=== PATIENT | male | born 1995 | race Caucasian/White ===

== ENCOUNTER 2016-10-25 23:25 | Emergency (ER) | payer SELFPAY ==
[2016-10-25 23:26] VITALS: BP 164/75; PULSE 106; RESP 18; TEMP 98.2; O2SAT 98
[2016-10-26] MEDS ORDERED: SODIUM CHLORID 0.9% 500 ML INJ 500 ML IV ONE (00:30)
[2016-10-26] MEDS ORDERED: SODIUM CHLORIDE 0.9% FLUSH 5 ML FLUSH IVF PRN (00:30)
[2016-10-26] MEDS ORDERED: ONDANSETRON HCL 4 MG/2 ML VIAL IV PUSH ONE (00:30)
--- NOTE | 2016-10-26 00:41 | RADRPT ---
EXAM DATE/TIME: 10/26/2016 00:39 [place] COMPARISON: No previous studies available for comparison. INDICATIONS : Chest pain. MEDICAL HISTORY : None. SURGICAL HISTORY : Inguinal hernia repair. ENCOUNTER: Initial ACUITY: 1 day PAIN SCORE: 5/10 LOCATION: Bilateral chest FINDINGS: PA and lateral views of the chest demonstrate a normal-sized cardiac silhouette. There is no effusion , consolidation, or pneumothorax. The bones and soft tissues demonstrate no acute abnormality. CONCLUSION: No acute cardiopulmonary abnormality is identified. Bethel Pastor MD on October 26, 2016 at 0:38 Board Certified Radiologist. This report was verified electronically.
[2016-10-26 00:56] VITALS: BP 130/60; PULSE 87; RESP 18; O2SAT 96
[2016-10-26 01:06] LABS: AUTOMATED NEUTROPHIL # 6.9 TH/MM3 (1.8-7.7); BASOPHIL # 0.1 TH/MM3 (0-0.2); BASOPHIL % 0.6 % (0.0-2.0); EOSINOPHIL % 0.5 % (0.0-4.0); HEMATOCRIT 43.5 % (39.0-51.0); HEMO FLAGS DIFF FINAL; LYMPH % 25.3 % (9.0-44.0); LYMPHOCYTE # 2.6 TH/MM3 (1.0-4.8); MEAN CELL VOLUME 91.9 FL (80.0-100.0); MEAN CORPUSCULAR HEMOGLOBIN 31.7 PG (27.0-34.0); MEAN CORPUSCULAR HGB CONC 34.5 % (32.0-36.0); MONO % 7.9 % (0.0-8.0); NEUT % 65.7 % (16.0-70.0); PLATELET COUNT 280 TH/MM3 (150-450); RED BLOOD COUNT 4.74 MIL/MM3 (4.50-5.90); RED CELL DISTRIBUTION WIDTH 12.1 % (11.6-17.2); WHITE BLOOD COUNT 10.4 TH/MM3 (4.0-11.0)
[2016-10-26 01:14] LABS: APTT (PATIENT) 26.6 SEC (24.3-30.1); PROTHROMBIN TIME - PATIENT 11.4 SEC (9.8-11.6)
[2016-10-26 01:25] LABS: ALT (GPT) 49 U/L (12-78); ANION GAP 8 MEQ/L (5-15); AST (GOT) 38 U/L (15-37); BICARBONATE 29.4 MEQ/L (21.0-32.0); BLOOD UREA NITROGEN 17 MG/DL (7-18); CHLORIDE 104 MEQ/L (98-107); GLOMERULAR FILTRATION RATE 73 ML/MIN (>89); MAGNESIUM 2.2 MG/DL (1.5-2.5); SODIUM (NA) 141 MEQ/L (136-145)
[2016-10-26 01:26] LABS: ALKALINE PHOSPHATASE 68 U/L (45-117); CREATINE KINASE 829 U/L (39-308); TOTAL BILIRUBIN ADULT 0.6 MG/DL (0.2-1.0)
[2016-10-26 01:29] LABS: POTASSIUM 3.8 MEQ/L (3.5-5.1)
[2016-10-26 01:38] LABS: CKMB 1.6 NG/ML (0.5-3.6)
--- NOTE | 2016-10-26 02:09 | PD ---
HPI Chief Complaint: Chest Pain Time Seen by Provider: 23:57 Travel History International Travel<30 days: No Contact w/Intl Traveler<30days: No Traveled to known affect area: No History of Present Illness HPI 21 y/o male presents with left-sided chest pain that goes down his arm that is been intermittent with associated nonbloody emesis. He was playing softball today and the symptoms started while he was driving home. His mother brought him here to the emergency room for evaluation and is concerned given their family history of heart disease. He denies other concurrent complaints. Quality is sharp. Severity is moderate. Pain is worse with movement. He denies other modifying factors. He denies history of heart disease. Duration is couple hours. PFSH Past Medical History ADHD: Yes Diminished Hearing: No Tetanus Vaccination: < 5 Years Influenza Vaccination: No Past Surgical History Other Surgery: Yes (hydrocel and double hernia surgery age 5) Family History Family Myocardial Infarction: Yes (multiple family members with earliest in their 60s) Social History Alcohol Use: Yes (socially ) Tobacco Use: No Substance Use: Yes (marijaunia) Allergies-Medications (Allergen,Severity, Reaction): Coded Allergies: No Known Allergies (Unverified , 10/25/16) Reported Meds & Prescriptions Reported Meds & Active Scripts Active Zofran Odt (Ondansetron Odt) 4 Mg Tab 4 Mg SL Q6HR PRN Review of Systems Except as stated in HPI: all other systems reviewed are Neg Physical Exam Narrative GENERAL: Well-nourished, well-developed patient. SKIN: Warm and dry. HEAD: Normocephalic and atraumatic. EYES: No injection or drainage. ENT: No nasal drainage noted. NECK: Supple, trachea midline. CARDIOVASCULAR: Regular rate and rhythm RESPIRATORY: Breath sounds equal bilaterally. No accessory muscle use. GASTROINTESTINAL: Abdomen soft, non-tender, nondistended. EXTREMITIES: No edema. NEUROLOGICAL: Awake and alert. Motor and sensory grossly within normal limits. Normal speech. Data Data Last Documented VS Vital Signs Date Time Temp Pulse Resp B/P Pulse Ox O2 Delivery O2 Flow Rate FiO2 10/26/16 03:01 75 18 114/54 97 10/26/16 00:56 Room Air 10/25/16 23:26 98.2 Orders Electrocardiogram (10/25/16 23:59) Chest, Pa & Lat (10/25/16 23:59) Ckmb (Isoenzyme) Profile (10/26/16 00:29) Complete Blood Count With Diff (10/26/16 00:29) Comprehensive Metabolic Panel (10/26/16 00:29) Magnesium (Mg) (10/26/16 00:29) Prothrombin Time / Inr (Pt) (10/26/16 00:29) Act Partial Throm Time (Ptt) (10/26/16 00:29) Troponin I (10/26/16 00:29) Lipase (10/26/16 00:29) Ecg Monitoring (10/26/16 00:29) Iv Access Insert/Monitor (10/26/16 00:29) Oximetry (10/26/16 00:29) Sodium Chloride 0.9% Flush (Ns Flush) (10/26/16 00:30) Sodium Chlorid 0.9% 500 Ml Inj (Ns 500 M (10/26/16 00:30) Ondansetron Inj (Zofran Inj) (10/26/16 00:30) Alcohol (Ethanol) (10/26/16 00:29) CKMB (10/26/16 00:40) CKMB% (10/26/16 00:40) Drug Screen, Random Urine (10/26/16 01:49) Labs Laboratory Tests Test 10/26/16 10/26/16 00:40 02:05 White Blood Count 10.4 TH/MM3 Red Blood Count 4.74 MIL/MM3 Hemoglobin 15.0 GM/DL Hematocrit 43.5 % Mean Corpuscular Volume 91.9 FL Mean Corpuscular Hemoglobin 31.7 PG Mean Corpuscular Hemoglobin 34.5 % Concent Red Cell Distribution Width 12.1 % Platelet Count 280 TH/MM3 Mean Platelet Volume 9.0 FL Neutrophils (%) (Auto) 65.7 % Lymphocytes (%) (Auto) 25.3 % Monocytes (%) (Auto) 7.9 % Eosinophils (%) (Auto) 0.5 % Basophils (%) (Auto) 0.6 % Neutrophils # (Auto) 6.9 TH/MM3 Lymphocytes # (Auto) 2.6 TH/MM3 Monocytes # (Auto) 0.8 TH/MM3 Eosinophils # (Auto) 0.0 TH/MM3 Basophils # (Auto) 0.1 TH/MM3 CBC Comment DIFF FINAL Differential Comment Prothrombin Time 11.4 SEC Prothromb Time International 1.0 RATIO Ratio Activated Partial 26.6 SEC Thromboplast Time Sodium Level 141 MEQ/L Potassium Level 3.8 MEQ/L Chloride Level 104 MEQ/L Carbon Dioxide Level 29.4 MEQ/L Anion Gap 8 MEQ/L Blood Urea Nitrogen 17 MG/DL Creatinine 1.25 MG/DL Estimat Glomerular Filtration 73 ML/MIN Rate Random Glucose 92 MG/DL Calcium Level 9.5 MG/DL Magnesium Level 2.2 MG/DL Total Bilirubin 0.6 MG/DL Aspartate Amino Transf 38 U/L (AST/SGOT) Alanine Aminotransferase 49 U/L (ALT/SGPT) Alkaline Phosphatase 68 U/L Total Creatine Kinase 829 U/L Creatine Kinase MB 1.6 NG/ML Creatine Kinase MB % 0.2 % Troponin I LESS THAN 0.02 NG/ML Total Protein 8.1 GM/DL Albumin 4.4 GM/DL Lipase 174 U/L Ethyl Alcohol Level LESS THAN 3 MG/DL Urine Opiates Screen NEG Urine Barbiturates Screen NEG Urine Amphetamines Screen NEG Urine Benzodiazepines Screen NEG Urine Cocaine Screen NEG Urine Cannabinoids Screen POS MDM Medical Decision Making Medical Screen Exam Complete: Yes Emergency Medical Condition: Yes Medical Record Reviewed: Yes (past history confirmed) Interpretation(s) EKG shows NSR, no ST elevation or depression, and no arrhythmias. No significant T-wave inversions. CBC & BMP Diagram 10/26/16 00:40 CK with elevation cxr no acute Differential Diagnosis Musculoskeletal, pancreatitis, pneumothorax, atypical cardiac Narrative Course Will check blood work, EKG, chest x-ray and reevaluate labs with mild ck elevation, patient was playing softball the day. Other workup is negative. Urine drug screen is negative for cocaine. No emesis here and patient feeling better. Offered chest pain center versus delta troponin and patient and family preferring to go home now and will follow-up as an outpatient and return if symptoms return, all questions answered Diagnosis Primary Impression: Chest pain Qualified Code: R07.9 - Chest pain, unspecified type Additional Impressions: Vomiting Qualified Code: R11.2 - Non-intractable vomiting with nausea, unspecified vomiting type Rhabdomyolysis Qualified Code: M62.82 - Non-traumatic rhabdomyolysis Patient Instructions: General Instructions Additional Instructions: keep hydrated, follow with primary thursday, set up a high frequency mill operator, tylenol as needed Med/Other Pt SpecificInfo: Prescription(s) given Scripts Ondansetron Odt (Zofran Odt)4 Mg Tab4 Mg SL Q6HR PRN (Nausea/Vomiting) #10 TAB Prov:Kathrin Boothe MD 10/26/16 Disposition: 01 DISCHARGE HOME Condition: Stable Kathrin Boothe MD Oct 26, 2016 02:08
[2016-10-26 02:10] VITALS: BP 114/72; PULSE 88; RESP 18; O2SAT 98
[2016-10-26 02:33] LABS: BARBITURATES, URINE NEG (NEG); COCAINE, URINE NEG (NEG)
[2016-10-26 02:36] LABS: AMPHETAMINE, URINE NEG (NEG)
[2016-10-26 03:01] VITALS: BP 114/54
[2016-10-26] MEDS ORDERED: ZOFR4TAB3 SL (03:03)
--- NOTE | 2016-10-26 11:54 | EKG ---
Date Performed: 10/25/2016 Time Performed: 23:45:46 PTAGE: 21 years EKG: Sinus rhythm NORMAL ECG NO PREVIOUS TRACING DOCTOR: Tony Camara Interpretating Date/Time 10/26/2016 11:54:10
== END 2016-10-26 03:20 | disposition home or self-care (01) ==
LOC: NEPC 23:25
DX: R07.9 Chest pain, unspecified (principal); R11.10 Vomiting, unspecified; M62.82 Rhabdomyolysis
CPT/HCPCS: 71020; 80053; 80307; 80320; 82550; 82552; 83690; 83735; 84484; 85025; 85610; 85730; 93005; 96374; 99285; J2405; J7040

== ENCOUNTER 2016-12-15 23:29 | Emergency (ER) | payer SELFPAY ==
[~2016-12-15] VITALS: Ht 182.9 cm; Wt 99.0 kg
[~2016-12-15 23:29] MED LIST: ZOFR4TAB3 SL
[2016-12-15 23:39] VITALS: BP 147/91; PULSE 75; RESP 16; TEMP 98.1; O2SAT 97
[2016-12-16 07:39] VITALS: BP 137/88; PULSE 69; RESP 16; O2SAT 99
[2016-12-16] MEDS ORDERED: ALUMINUM/MAGNESIUM/SIMETH 30 ML CUP PO ONE (07:45)
[2016-12-16] MEDS ORDERED: SODIUM CHLORIDE 0.9% FLUSH 10 ML FLUSH IV FLUSH PRN (07:45)
[2016-12-16] MEDS ORDERED: LIDOCAINE VISCOUS 2% SOLN 15 ML UDC PO ONE (07:45)
--- NOTE | 2016-12-16 07:51 | PD ---
HPI Chief Complaint: Abdominal Pain Time Seen by Provider: 07:38 Travel History International Travel<30 days: No Contact w/Intl Traveler<30days: No Traveled to known affect area: No History of Present Illness HPI This is a 21-year-old gentleman with history of ADHD, presents today with complaints of epigastric discomfort on and off times several days. The patient states that he feels the urge to belch when he has the pain. He says he feels slight relief with belching however it does come back. He denies any fevers, chills. Patient states his mom is concerned that he may have a hernia as he's had previous inguinal hernias before past. The patient denies any hematemesis. The patient denies any hematochezia. He does report that he has looser stools than normal. There are no other complaints at the time of my examination. PFSH Past Medical History ADHD: Yes Diminished Hearing: No Immunizations Current: Yes Tetanus Vaccination: Unknown Influenza Vaccination: No Past Surgical History Other Surgery: Yes (hydrocel and double hernia surgery age 5) Social History Alcohol Use: Yes (socially ) Tobacco Use: No Substance Use: Yes (marijaunia) Allergies-Medications (Allergen,Severity, Reaction): Coded Allergies: No Known Allergies (Unverified , 12/16/16) Reported Meds & Prescriptions Reported Meds & Active Scripts Active Prilosec (Omeprazole) 20 Mg Cap 20 Mg PO DAILY Review of Systems Except as stated in HPI: all other systems reviewed are Neg General / Constitutional: No: Fever, Chills Cardiovascular: No: Chest Pain or Discomfort, Palpitations Respiratory: No: Cough, Shortness of Breath Gastrointestinal: Positive: Abdominal Pain, Changes in Bowel Habits (looser stools than normal no diarrhea), No: Nausea, Vomiting, Hematemesis ( supraumbilical), Hematochezia Genitourinary: No: Frequency, Dysuria Musculoskeletal: No: Weakness, Pain Physical Exam Narrative GENERAL: Well-nourished, well-developed patient, in no acute distress. SKIN: Focused skin assessment warm/dry. HEAD: Normocephalic/atraumatic. EYES: No scleral icterus. No injection or drainage. NECK: Supple, trachea midline. CARDIOVASCULAR: Regular rate and rhythm without murmurs, gallops, or rubs. RESPIRATORY: Breath sounds equal bilaterally. No accessory muscle use. GASTROINTESTINAL: Abdomen soft, nondistended. There is no tenderness to palpation. The patient reports subjective discomfort in his epigastric/ supraumbilical abdominal distribution. There is no rebound or guarding noted. MUSCULOSKELETAL: No cyanosis, or edema. NEUROLOGICAL: Awake and alert. Cranial nerves II through XII intact. Motor grossly within normal limits. Five out of 5 muscle strength in all muscle groups. Normal speech. Data Data Last Documented VS Vital Signs Date Time Temp Pulse Resp B/P Pulse Ox O2 Delivery O2 Flow Rate FiO2 12/16/16 07:39 69 16 137/88 99 Room Air 12/15/16 23:39 98.1 Orders Complete Blood Count With Diff (12/16/16 07:42) Comprehensive Metabolic Panel (12/16/16 07:42) Lipase (12/16/16 07:42) Iv Access Insert/Monitor (12/16/16 07:42) Ecg Monitoring (12/16/16 07:42) Oximetry (12/16/16 07:42) Sodium Chloride 0.9% Flush (Ns Flush) (12/16/16 07:45) Al-Mag Hy-Si 40-40-4 Mg/Ml Liq (Mag-Al P (12/16/16 07:45) Lidocaine 2% Viscous (Xylocaine 2% Visco (12/16/16 07:45) Mandatory Outpatient Referral (12/16/16 09:21) Labs Laboratory Tests Test 12/16/16 08:00 White Blood Count 8.2 TH/MM3 Red Blood Count 4.76 MIL/MM3 Hemoglobin 15.0 GM/DL Hematocrit 43.8 % Mean Corpuscular Volume 92.0 FL Mean Corpuscular Hemoglobin 31.5 PG Mean Corpuscular Hemoglobin 34.2 % Concent Red Cell Distribution Width 11.9 % Platelet Count 265 TH/MM3 Mean Platelet Volume 8.9 FL Neutrophils (%) (Auto) 50.1 % Lymphocytes (%) (Auto) 38.1 % Monocytes (%) (Auto) 8.9 % Eosinophils (%) (Auto) 2.2 % Basophils (%) (Auto) 0.7 % Neutrophils # (Auto) 4.1 TH/MM3 Lymphocytes # (Auto) 3.1 TH/MM3 Monocytes # (Auto) 0.7 TH/MM3 Eosinophils # (Auto) 0.2 TH/MM3 Basophils # (Auto) 0.1 TH/MM3 CBC Comment DIFF FINAL Differential Comment Sodium Level 140 MEQ/L Potassium Level 4.1 MEQ/L Chloride Level 104 MEQ/L Carbon Dioxide Level 29.4 MEQ/L Anion Gap 7 MEQ/L Blood Urea Nitrogen 14 MG/DL Creatinine 1.00 MG/DL Estimat Glomerular Filtration 94 ML/MIN Rate Random Glucose 96 MG/DL Calcium Level 9.6 MG/DL Total Bilirubin 0.6 MG/DL Aspartate Amino Transf 32 U/L (AST/SGOT) Alanine Aminotransferase 43 U/L (ALT/SGPT) Alkaline Phosphatase 60 U/L Total Protein 7.5 GM/DL Albumin 4.2 GM/DL Lipase 219 U/L [facility] Medical Decision Making Medical Screen Exam Complete: Yes Emergency Medical Condition: Yes Medical Record Reviewed: Yes Differential Diagnosis Peptic ulcer disease versus pancreatitis versus cholecystitis Narrative Course This is a 21 year-old gentleman who presents with complaints of epigastric/ supraumbilical discomfort. The patient states that it is somewhat relieved with belching. The patient has exam and history consistent with peptic ulcer disease. Lipase and laboratory tests are within normal limits. I discussed with the patient that he should observe a bland diet. I will start him on Prilosec 20 mg daily 30 days. There's been a mandatory referral placed for an outpatient GI follow up. Diagnosis Primary Impression: Epigastric abdominal pain Additional Impression: suspected peptic ulcer disease Additional Instructions: There will be a mandatory referral placed for an outpatient GI appointment. He should receive a call from the nurse regarding this. [place] diet until seen by voicer.Spicy, fatty, acidic foods. Med/Other Pt SpecificInfo: Prescription(s) given Scripts Omeprazole (Prilosec)20 Mg Cap20 Mg PO DAILY #30 CAP Ref 0 Prov:Adrian Galeano MD 12/16/16 Disposition: 01 DISCHARGE HOME Condition: Stable Adrian Galeano MD Dec 16, 2016 07:51
[2016-12-16 08:17] LABS: AUTOMATED NEUTROPHIL # 4.1 TH/MM3 (1.8-7.7); BASOPHIL # 0.1 TH/MM3 (0-0.2); BASOPHIL % 0.7 % (0.0-2.0); EOSINOPHIL # 0.2 TH/MM3 (0-0.4); EOSINOPHIL % 2.2 % (0.0-4.0); HEMATOCRIT 43.8 % (39.0-51.0); HEMO FLAGS DIFF FINAL; LYMPH % 38.1 % (9.0-44.0); LYMPHOCYTE # 3.1 TH/MM3 (1.0-4.8); MEAN CORPUSCULAR HEMOGLOBIN 31.5 PG (27.0-34.0); MEAN CORPUSCULAR HGB CONC 34.2 % (32.0-36.0); MONO % 8.9 % (0.0-8.0); NEUT % 50.1 % (16.0-70.0); PLATELET COUNT 265 TH/MM3 (150-450); RED BLOOD COUNT 4.76 MIL/MM3 (4.50-5.90); RED CELL DISTRIBUTION WIDTH 11.9 % (11.6-17.2); WHITE BLOOD COUNT 8.2 TH/MM3 (4.0-11.0)
[2016-12-16 08:41] LABS: ALKALINE PHOSPHATASE 60 U/L (45-117); ALT (GPT) 43 U/L (12-78); ANION GAP 7 MEQ/L (5-15); AST (GOT) 32 U/L (15-37); BICARBONATE 29.4 MEQ/L (21.0-32.0); BLOOD UREA NITROGEN 14 MG/DL (7-18); CHLORIDE 104 MEQ/L (98-107); GLOMERULAR FILTRATION RATE 94 ML/MIN (>89); SODIUM (NA) 140 MEQ/L (136-145); TOTAL BILIRUBIN ADULT 0.6 MG/DL (0.2-1.0)
[2016-12-16 08:48] LABS: POTASSIUM 4.1 MEQ/L (3.5-5.1)
[2016-12-16] MEDS ORDERED: PRIL20CA9 PO (09:21)
[2016-12-16 09:46] VITALS: BP 127/78
== END 2016-12-16 09:48 | disposition home or self-care (01) ==
LOC: NEPE 23:29
DX: R10.13 Epigastric pain (principal)
CPT/HCPCS: 80053; 83690; 85025; 99284